=== PATIENT | male | born 1935 | race Caucasian/White ===

== ENCOUNTER 2019-04-02 21:35 | Observation (INO) ==
[2019-04-03] MEDS ORDERED: Naloxone 0.4 MG/ML INJ IVP PRN (00:49)
[2019-04-03] MEDS ORDERED: Ondansetron 4 MG/2 ML VIAL IVP PRN (00:49)
[2019-04-03] MEDS ORDERED: 0.9 % Sodium Chloride 1,000 ML IVC SCH (01:00)
[2019-04-03 02:23] LABS: Basophils % 0.3 %; Eosinophils # 0.1 K/mcL (0.0-0.6); Hematocrit 39.4 % (37.5-50.1); Immature Granulocytes % 0.5 % (0-4); Lymphocytes % 11.9 %; Mean Corpuscular Volume 93.8 fL (83.0-100.0); Mean Platelet Volume 11.3 fL (9.4-12.4); Monocytes # 0.9 K/mcL (0.0-1.3); Monocytes % 10.8 %; Platelet Count 297 K/mcL (140-400); Segmented Neutrophils % 75.5 %
[2019-04-03 02:27] LABS: INR 1.4; Prothrombin Time 15.9 Seconds (9.4-12.1)
[2019-04-03 02:30] LABS: Activated Partial Thrombo Time 31.1 Seconds (26.0-36.0)
[2019-04-03 02:45] LABS: Alanine Aminotransferase 19 Units/L (7-52); Albumin 2.7 g/dL (3.5-5.7); Albumin/Globulin Ratio 0.8 (1.1-2.2); Alkaline Phosphatase 74 Units/L (34-104); Aspartate Amino Transferase 25 Units/L (13-39); BUN/Creatinine Ratio 25 (6-26); Bilirubin,Direct 0.2 mg/dL (0.0-0.2); Bilirubin,Indirect 0.5 mg/dL (0.0-1.0); Bilirubin,Total 0.7 mg/dL (0.3-1.0); Blood Urea Nitrogen 22 mg/dL (8-23); Carbon Dioxide 33 mEq/L (23-29); Chloride 97 mEq/L (98-107); Globulin 3.4 g/dL (2.4-3.5); Glucose 113 mg/dL (70-105); Magnesium 1.7 mg/dL (1.6-2.6); Osmolality,Calculated 292 (280-300); Potassium 2.9 mEq/L (3.5-5.1); Sodium 139 mEq/L (136-145); Total Protein 6.1 g/dL (6.4-8.9); eGFR For African Americans > 60 (> 60); eGFR For Non-African Americans > 60 (> 60)
[2019-04-03] MEDS: Potassium Chloride Elixir 20 MEQ/15 ML UDC PO SCH ×2 (09:48→15:28)
[2019-04-03] MEDS: GuaiFENesin Liq 200 MG/10 ML UDC PO PRN ×2 (12:37→20:51)
[2019-04-04 07:51] LABS: Basophils % 0.2 %; Eosinophils # 0.1 K/mcL (0.0-0.6); Eosinophils % 0.7 %; Hematocrit 40.2 % (37.5-50.1); Hemoglobin 13.4 g/dL (12.9-16.9); Immature Granulocytes % 0.6 % (0-4); Lymphocytes # 0.9 K/mcL (0.6-4.6); Lymphocytes % 9.2 %; Mean Corpuscular HGB Conc 33.3 g/dL (31.6-35.5); Mean Corpuscular Hemoglobin 31.8 pg (28.0-33.3); Mean Corpuscular Volume 95.3 fL (83.0-100.0); Mean Platelet Volume 11.3 fL (9.4-12.4); Monocytes # 0.9 K/mcL (0.0-1.3); Neutrophils # 7.9 K/mcL (1.6-8.9); Platelet Count 312 K/mcL (140-400); Red Blood Count 4.22 M/mcL (4.19-5.50); Red Cell Distribution Width 11.9 % (11.5-14.5); Segmented Neutrophils % 80.3 %; White Blood Count 9.9 K/mcL (4.3-11.1)
[2019-04-04 08:10] LABS: BUN/Creatinine Ratio 21 (6-26); Blood Urea Nitrogen 15 mg/dL (8-23); Calcium 9.3 mg/dL (8.6-10.3); Carbon Dioxide 28 mEq/L (23-29); Chloride 98 mEq/L (98-107); Glucose 118 mg/dL (70-105); Magnesium 1.5 mg/dL (1.6-2.6); Osmolality,Calculated 292 (280-300); Phosphorous 2.2 mg/dL (2.7-4.5); Potassium 3.2 mEq/L (3.5-5.1); Sodium 140 mEq/L (136-145); eGFR For African Americans > 60 (> 60); eGFR For Non-African Americans > 60 (> 60)
[2019-04-04] MEDS ORDERED: Potassium Chloride Elixir 20 MEQ/15 ML UDC PO SCH (08:45)
[2019-04-04] MEDS ORDERED: Lisinopril 20 MG TABLET PO SCH (09:00)
[2019-04-04] MEDS ORDERED: amLODIPine 5 MG TABLET PO SCH (09:00)
[2019-04-04 14:29] VITALS: BP 147/63
[2019-04-04 14:57] LABS: INR 1.5; Prothrombin Time 16.9 Seconds (9.4-12.1)
== END 2019-04-04 18:55 | disposition home or self-care (01) ==
LOC: 3ANU
PROVIDERS: ADMIT Internal Medicine; ATTEND Internal Medicine